=== PATIENT | female | born 1990 | race Caucasian/White ===

== ENCOUNTER → 2021-08-01 15:35 | Outpatient (CLI) | payer OTHER, SELFPAY ==
[2021-08-01 17:49] LABS: Add Manual Diff / Slide Review NO; Basophils Absolute Auto 100 /uL (0-100); Basophils Percent Auto 0.7 % (0-2); Eosinophils Absolute Auto 100 /uL (0-450); Eosinophils Percent Auto 0.7 % (2-4); Hematocrit 38.9 % (36-46); Hemoglobin 13.7 g/dL (12.0-16.0); Lymphocytes Absolute Auto 1600 /uL (1100-4500); Lymphocytes Percent Auto 19.9 % (25-40); Mean Corpuscular HGB Conc 35.2 % (30-36); Mean Corpuscular Hemoglobin 29.9 PG (26-34); Mean Corpuscular Volume 84.9 fL (80-100); Monocytes Absolute Auto 300 /uL (0-900); Monocytes Percent Auto 4.4 % (3-14); Neutrophils Absolute Auto 5900 /uL (1500-7000); Neutrophils Percent Auto 74.3 % (50-75); Platelet Count 215 X10^3/uL (150-400); Red Blood Cell Count 4.58 X10^6/uL (4.0-5.2); Red Cell Distribution Width 13.2 % (11.6-14.8)
[2021-08-01 17:53] LABS: Appearance Urine UA CLEAR; Bilirubin Urine UA NEGATIVE (NEGATIVE); Color Urine UA YELLOW; Glucose Urine UA NEGATIVE (Negative); Ketones Urine UA NEGATIVE (NEGATIVE); Leukocyte Esterase Urine UA NEGATIVE (NEGATIVE); Nitrite Urine UA NEGATIVE (Negative); Occult Blood Urine UA NEGATIVE (Negative); Protein Urine UA TRACE (Negative); Specific Gravity Urine UA 1.025 (1.000-1.035); Urobilinogen Urine UA 0.2 E.U./dL (0.2)
[2021-08-01 19:15] LABS: Urine N gonorrhoeae NOT DETECTED
[2021-08-01 20:37] LABS: Urine Chlamydia NOT DETECTED
[2021-08-02 20:35] LABS: Hepatitis B Surface Antigen NEGATIVE s/c (NEGATIVE); Rubella Antibody IgG 1.9 IU/mL (>15)
[2021-08-02 20:57] LABS: HIV 1 & 2 Ab/Ag 4th Gen Combo NEGATIVE (NEGATIVE); Hep C Virus Ab w/Reflex Quant NEGATIVE s/c (NEGATIVE)
[2021-08-03 07:45] LABS: RPR Screen Non Reactive (Non Reactive); Varicella IgG Antibody 329 index (Immune >165)
== END ==
PROVIDERS: Referring Provider Obstetrics & Gynecology; Visit Provider Obstetrics & Gynecology
DX: Z34.80 Encounter for supervision of other normal pregnancy, unspecified trimester
CPT/HCPCS: 36415; 80055; 81003; 86787; 86803; 86850; 86900; 86901; 87086; 87389; 87491; 87591

== ENCOUNTER → 2021-10-18 14:58 | Outpatient (CLI) | payer OTHER, SELFPAY ==
--- NOTE | 2021-10-18 14:59 | DI.US.S_ITS ---
PROCEDURE: US OB >= 14 WEEKS FETUS INDICATIONS: ANATOMY OUTSIDE/PRIOR DATING DATA: Last menstrual period (LMP): Unknown. LMP-based estimated date of delivery (ERNIE): Unknown. First dating scan (date and location): 07/25/2021 Estimated date of delivery (ERNIE) from first dating scan: 03/04/2022 The calculations are made using the study generated ERNIE of 03/04/2022. TECHNIQUE: Real-time scanning was performed of the fetus, with image documentation and biometric measurements. Endovaginal scanning: Not indicated COMPARISON: [facility], US, US OB < 14 WEEKS, 07/25/2021, 7:16. FINDINGS: General: A single living intrauterine gestation is present. Presentation: Vertex. Placenta: Placental position is left posterior, without previa. Amniotic fluid index: 18.2 cm, normal range is 5-24 cm. Single deepest vertical pocket is 6.1 cm. heart rate: 168 beats per minute. Maternal cervical canal: 4.3 cm long. Normal lower limit is 2.5 cm. biometrics: Biparietal diameter: 5.0 cm, 21 weeks, 1 day Head circumference: 18.5 cm, 20 weeks, 6 days Abdominal circumference: 16.9 cm, 21 weeks, 6 days Femur length: 3.4 cm, 20 weeks, 4 days Clinically estimated gestational age: 20 weeks, 3 days Composite gestational age from present scan: 21 weeks, 1 day Estimated weight and percentile: 407 g, 85% Anatomic survey: Neuro: Ventricles are non-dilated at less than 10 mm. Cisterna magna is normal at 3-11 mm. Cerebellum is normal in size and morphology. Nuchal skin fold: Normal at less than 6 mm between 14-21 weeks gestational age. Face: Nose and lips, facial profile are normal. Spine: No evidence for spina bifida. Heart: 4-chambered heart is present, with normal ventricular outflow tracts. Diaphragm: Diaphragm is intact. Stomach: Left-sided stomach is present. Kidneys: No hydronephrosis. Normal is less than 5 mm in 2nd trimester, less than 7 mm in 3rd trimester. Cord: 3-vessel cord has orthotopic insertion. Bladder: Normal in size. Extremities: All 4 extremities identified. IMPRESSION: 1. Single live intrauterine gestation with fetus in vertex presentation. heart rate is 168 beats per minute. Normal amount of amniotic fluid. Normal growth. Estimated weight is at 85%. 2. Normal anatomic survey. We strive to produce accurate, complete, and clear reports of imaging services. To assist us in improving patient care, this report was composed using standard report templates and voice recognition software. Therefore, it may contain abnormal punctuation, insertions and/or omissions. Occasional wrong-word or sound-alike substitutions may occur. Though we review the report and make efforts to correct it, we do recommend that the report be read carefully in proper context to recognize any text inaccuracies. Dictated by: Wesley Means M.D. on 10/18/2021 at 16:59 Approved by: Wesley Means M.D. on 10/19/2021 at 15:42
== END ==
PROVIDERS: Referring Provider Obstetrics & Gynecology; Visit Provider Obstetrics & Gynecology
DX: Z34.92 Encounter for supervision of normal pregnancy, unspecified, second trimester (principal); Z3A.20 20 weeks gestation of pregnancy
CPT/HCPCS: 76811

== ENCOUNTER → 2021-12-18 12:28 | Outpatient (CLI) | payer OTHER, SELFPAY ==
[2021-12-18 14:50] LABS: Hematocrit 36.7 % (36-46); Hemoglobin 12.6 g/dL (12.0-16.0)
[2021-12-18 14:52] LABS: GTT (PREG) 1 Hour PP 50gm Dose 127 mg/dL (76-139)
== END ==
PROVIDERS: Referring Provider Obstetrics & Gynecology; Visit Provider Obstetrics & Gynecology
DX: Z34.82 Encounter for supervision of other normal pregnancy, second trimester (principal); Z3A.26 26 weeks gestation of pregnancy
CPT/HCPCS: 36415; 82950; 85014; 85018

== ENCOUNTER → 2022-01-22 14:28 | Outpatient (CLI) | payer OTHER, SELFPAY ==
[2022-01-22 16:30] LABS: Add Manual Diff / Slide Review NO; Basophils Absolute Auto 0 /uL (0-100); Basophils Percent Auto 0.4 % (0-2); Eosinophils Absolute Auto 100 /uL (0-450); Hemoglobin 13.6 g/dL (12.0-16.0); Lymphocytes Absolute Auto 1600 /uL (1100-4500); Lymphocytes Percent Auto 16.7 % (25-40); Mean Corpuscular HGB Conc 34.9 % (30-36); Mean Corpuscular Hemoglobin 30.9 PG (26-34); Mean Corpuscular Volume 88.3 fL (80-100); Monocytes Absolute Auto 600 /uL (0-900); Monocytes Percent Auto 6.3 % (3-14); Neutrophils Absolute Auto 7300 /uL (1500-7000); Neutrophils Percent Auto 75.6 % (50-75); Platelet Count 178 X10^3/uL (150-400); Red Blood Cell Count 4.41 X10^6/uL (4.0-5.2); White Blood Cell Count 9.6 X10^3/uL (4.5-11.0)
[2022-01-22 17:07] LABS: Alanine Aminotransferase 10 IU/L (<35); Aspartate Aminotransferase 21 IU/L (14-36); BUN Creatinine Ratio 18.8 (6-22); Blood Urea Nitrogen 9 mg/dL (7-17); Estimated Glomerular Filt Rate > 60 mL/min (>60); Uric Acid 4.2 mg/dL (2.5-6.2)
== END ==
PROVIDERS: Referring Provider Specialist; Visit Provider Specialist
DX: O16.3 Unspecified maternal hypertension, third trimester (principal); O26.899 Other specified pregnancy related conditions, unspecified trimester; R51.9 Headache, unspecified
CPT/HCPCS: 36415; 82565; 84450; 84460; 84520; 84550; 85025

== ENCOUNTER → 2022-02-06 16:09 | Outpatient (CLI) | payer OTHER, SELFPAY ==
[2022-02-07 15:26] LABS: Strep Grp B PCR NEG for Grp B Strep
== END ==
PROVIDERS: Visit Provider Obstetrics & Gynecology
DX: Z34.83 Encounter for supervision of other normal pregnancy, third trimester (principal); Z3A.36 36 weeks gestation of pregnancy
CPT/HCPCS: 87653

== ENCOUNTER 2022-02-13 06:59 | Outpatient (CLI) | payer OTHER, SELFPAY ==
--- NOTE | 2022-02-13 07:40 | PM.OBTRLD ---
Visit Information Visit Information Date of evaluation: 02/13/22 Primary OB Provider: Bony Devries On-call OB Provider: Jie El Reason for Evaluation: Yes rupture of membranes Vital Signs Vital Signs: Temperature 36.7? blood pressure 127/77 heart rate 83 PFSH Social History marital status: Smoking Status: Never smoker Evaluation Evaluation Baseline heart rate: 150 Variability: Moderate (11-25) monitor accelerations: Present Monitor Decelerations: Absent Category of Tracing: Reactive Diagnosis, Plan/Disposition Final Diagnosis (1) 37 weeks gestation of : Status: Acute Plan/Disposition Plan: 32-year-old at 37 weeks and 2 days gestation with concern for rupture of membranes. AmniSure negative. NST reactive. Follow-up in clinic or return to center as needed. OB Disposition: home
== END 2022-02-13 07:45 | disposition home or self-care (01) ==
LOC: LABOR 07:25 → OB 02-14 10:49
PROVIDERS: Referring Provider Obstetrics & Gynecology; Visit Provider Obstetrics & Gynecology
DX: Z03.71 Encounter for suspected problem with amniotic cavity and membrane ruled out (principal); Z3A.37 37 weeks gestation of pregnancy
CPT/HCPCS: 59025; 84112; G0378; G0379

== ENCOUNTER 2022-03-06 14:51 | Outpatient (CLI) | payer OTHER, SELFPAY ==
--- NOTE | 2022-03-06 15:44 | PM.OBTRLD ---
Visit Information Visit Information Date of evaluation: 03/06/22 Primary OB Provider: Bony Devries On-call OB Provider: Bony Devries Reason for Evaluation: Yes non-stress test Comments/Additional reasons for admission: 32 yo at 40+2 weeks EGA for NST due to post-dates status. [facility] Social History marital status: Smoking Status: Never smoker Evaluation Evaluation Baseline heart rate: 150 Variability: Moderate (11-25) monitor accelerations: Present Monitor Decelerations: Absent Category of Tracing: Reactive Status: Category l Cervical dilation (cm): 1 Cervical effacement (%): 90 station: -1 Diagnosis, Plan/Disposition Final Diagnosis (1) : Status: Acute Plan/Disposition Plan: D/C to home with labor precautions. Plan to admit for cervical ripening on the evening of 03/13/2022 if undelivered. OB Disposition: home
== END 2022-03-06 15:48 | disposition home or self-care (01) ==
LOC: OB 03-12 08:43
PROVIDERS: Referring Provider Obstetrics & Gynecology; Visit Provider Obstetrics & Gynecology
DX: O48.0 Post-term pregnancy (principal); Z3A.40 40 weeks gestation of pregnancy
CPT/HCPCS: 59025; G0378; G0379

== ENCOUNTER 2022-03-09 04:40 | Inpatient (IN) | payer OTHER, SELFPAY ==
[2022-03-09 06:04] LABS: Add Manual Diff / Slide Review NO; Basophils Absolute Auto 0 /uL (0-100); Basophils Percent Auto 0.3 % (0-2); Eosinophils Absolute Auto 100 /uL (0-450); Eosinophils Percent Auto 0.7 % (2-4); Hematocrit 41.8 % (36-46); Hemoglobin 14.1 g/dL (12.0-16.0); Lymphocytes Absolute Auto 1500 /uL (1100-4500); Lymphocytes Percent Auto 14.3 % (25-40); Mean Corpuscular HGB Conc 33.7 % (30-36); Mean Corpuscular Hemoglobin 29.5 PG (26-34); Mean Corpuscular Volume 87.7 fL (80-100); Monocytes Absolute Auto 500 /uL (0-900); Monocytes Percent Auto 5.2 % (3-14); Neutrophils Absolute Auto 8300 /uL (1500-7000); Neutrophils Percent Auto 79.5 % (50-75); Platelet Count 157 X10^3/uL (150-400); Red Blood Cell Count 4.77 X10^6/uL (4.0-5.2); Red Cell Distribution Width 13.1 % (11.6-14.8); White Blood Cell Count 10.5 X10^3/uL (4.5-11.0)
[2022-03-09 06:07] LABS: COVID19 -Nasal RAPID Negative (Negative)
[2022-03-09] MEDS: LACTATED RINGERS 1,000 ML 100 ML IV ×2 (07:15→08:04)
[2022-03-09 07:47] VITALS: BP 114/61
--- NOTE | 2022-03-09 08:28 | PM.OBHP.1 ---
OB HPI Date/Time Date of admission: 03/09/22 Date Patient Seen: 03/09/22 Time Patient Seen: 07:45 History of Present Condition Chief complaint: Labor : 2 Para: 1 Estimated Date of Delivery: 03/04/22 Estimated Gestational Age (weeks): 40+5 Narrative: Berkley Tran is a 32 year old admitted in early active phase labor now at 40+5 weeks EGA after membrane sweep yesterday afternoon. PNC has been uneventful with appropriate growth and milestones. GBS is negative. Indications Indication for induction OB: post dates History of Present care: good care Dating criteria: LMP confirmed by 1st trimester US Ultrasounds: normal 1st trimester US and normal mid trimester US Obstetrical complications: none Medical complications: none Preadmission Labs Blood type: B (+) positive -: Antibody screen: negative, GBS status: negative, HBsAG: negative, HIV: negative and RPR/VDLR: negative -: Chlamydia screen: not detected and Gonorrhea screen: not detected -: Rubella: not immune and Varicella: immune HCT: 41.8 HCAB: negative PAP: Normal Quad screen: Normal Prior (ies) History: x 1 Evaluation Evaluation Baseline heart rate: 150 Variability: Moderate (11-25) monitor accelerations: Present Monitor Decelerations: Absent Contraction Frequency (minutes): 4 Uterine Contraction Intensity: Strong/Firm Category of Tracing: Reactive Status: Category l Dilation (cm): 6 Effacement (%): 100 Dilation: >/=5 cm Effacement: >/=80% station: -1 Position of cervix: anterior Consistency: soft Solitario score: 12 Non-invasive Membranes Rupture Test: positive [facility] Social History marital status: Smoking Status: Never smoker Meds Home Medications and Allergies Home Medications Medication Instructions Recorded Confirmed Type prenat.vits,vibha,zwj-bhht-akaxd 1 tab PO DAILY 07/17/21 03/08/22 History Allergies Allergy/AdvReac Type Severity Reaction Status Date / Time No Known Drug Allergies Allergy Unverified 03/08/22 16:07 Review of Systems Review of Systems Narrative: Problem-specific ROS positives included in HPI OB Exam HENMT Head: normal to inspection, normocephalic and atraumatic Eyes General: appearance normal, both eyes and all related structures Resp Effort & Inspection: normal respiratory effort and able to speak in complete sentences Auscultation: clear to auscultation bilaterally Cardio Rate: regular rate Rhythm: regular rhythm Heart Sounds: S1 normal, S2 normal and no murmurs Extremities Lower extremity: Yes normal to inspection GI Inspection: normal to inspection Palpation: Yes soft and Yes no hepatosplenomegaly Uterus Location (Fundal Height): 37 Estimated Weight (lbs): 8 Amniotic Fluid: clear Objective Labs Result Diagrams: 03/09/22 05:25 Labs: Laboratory Results - last 24 hr 03/09/22 03/09/22 03/09/22 05:25 05:25 05:25 WBC 10.5 RBC 4.77 Hgb 14.1 Hct 41.8 MCV 87.7 MCH 29.5 MCHC 33.7 RDW 13.1 Plt Count 157 Neut % (Auto) 79.5 H Lymph % (Auto) 14.3 L [place] % (Auto) 5.2 Eos % (Auto) 0.7 L Baso % (Auto) 0.3 Neut # (Auto) 8300 H Lymph # (Auto) 1500 [place] # (Auto) 500 Eos # (Auto) 100 Baso # (Auto) 0 SARS-CoV-2 (PCR) Negative Blood Type B Positive Antibody Screen Negative Assessment and Plan Assessment and Plan Assessment and Plan narrative: ASSESSMENT 1. Intrauterine , 40+5 weeks EGA 2. Early active phase labor 3. SROM, clear fluid 4. GBS negative status PLAN 1. Admit; anticipate 2. OK for CJ if desired 3. See admission orders.
--- NOTE | 2022-03-09 11:55 | PM.OBPNLAB ---
Date/Time Date Patient Seen: 03/09/22 Time Patient Seen: 11:55 Pain Control Pain control: tolerating well and epidural Pelvic Exam Dilation (cm): 10 Effacement (%): 100 station: +1 Amniotic membrane status: Ruptured Contractions Contraction frequency (min): 4 Contraction duration (min): 1 Contraction pattern: Regular Contraction intensity: Strong/Firm Status status: Category l Heart Rate Baseline: 145 Monitor Accelerations: Present Monitor Decelerations: Absent Assessment and Plan Assessment: active labor Plan: continuous present management Comments: Start pushing now in 2nd stage. Anticipate . I will be in the OR with an emergent case and have contacted Dr. Patrizia Carias who will serve as back-up in my stead. Patient is aware and understands the need for my absence.
[2022-03-09] MEDS: OXYTOCIN 10 UNIT/ML VIAL IM (13:10)
--- NOTE | 2022-03-09 13:41 | PM.OBPRVD ---
Labor & Delivery Delivery date: 03/09/22 Intrapartal Events: None Cervical ripening method: none Induction method: none Delivery monitor: external FHT and external uterine Route of delivery: Episiotomy description: None L&D Laceration Description: Perineal - 2nd Degree Quantitative Blood Loss: 1,300 Anesthesia Type: Epidural Complications: hemorrhage Narrative: PROCEDURE: at 40w5d presented in active labor with SROM and was admitted to Labor and Delivery. The patient progressed through the 1st stage over 7.5 hours. Pain was controlled with an epidural. The patient progressed through the 2nd stage over 1 hour and delivered a viable female infant with APGARs 7/9 at 13:06 via . The cord was cut and clamped after it stopped pulsating. The perineum and vagina were inspected with 2nd degree perineal laceration repaired with 2-O Vicryl. The pt had uterine atony after delivery that resolved with fundal massage and usual pitocin, which was delayed in administering. PREPROCEDURE DIAGNOSIS: Intrauterine at 40w5d GBS negative RH positive POSTPROCEDURE DIAGNOSIS: Intrauterine at 40w5d, delivered Same as preprocedure hemorrhage Baby 1: Infant gender: Female Presentation: vertex Position: Right Occiput Anterior Placenta delivery description: Spontaneous Cord Vessel Description: 3 Vessels score (1 min): 8 score (5 min): 9 Plan for aftercare: Routine care
[2022-03-09] MEDS: TRANEXAMIC ACID 1,000 MG in SODIUM CHLORIDE 0.9% 100 ML 200 MG IV (14:00)
[2022-03-09 14:18] VITALS: TEMP 38.8
[2022-03-09] MEDS: ACETAMINOPHEN 325 MG TABLET 650 MG PO ×2 (14:18→20:25)
[2022-03-09 14:19] VITALS: TEMP 38.8
[2022-03-09] MEDS: IBUPROFEN 600 MG TABLET PO ×2 (14:19→20:27)
[2022-03-09] MEDS: DERMOPLAST SPRAY 20% 60 ML 1 SPRAY TOP (14:21)
[2022-03-09 14:23] LABS: Add Manual Diff / Slide Review NO; Basophils Absolute Auto 100 /uL (0-100); Basophils Percent Auto 0.6 % (0-2); Eosinophils Absolute Auto 0 /uL (0-450); Hematocrit 34.2 % (36-46); Hemoglobin 11.5 g/dL (12.0-16.0); Lymphocytes Absolute Auto 900 /uL (1100-4500); Lymphocytes Percent Auto 4.5 % (25-40); Mean Corpuscular HGB Conc 33.6 % (30-36); Mean Corpuscular Hemoglobin 29.8 PG (26-34); Mean Corpuscular Volume 88.6 fL (80-100); Monocytes Absolute Auto 1000 /uL (0-900); Monocytes Percent Auto 5.1 % (3-14); Neutrophils Absolute Auto 17200 /uL (1500-7000); Neutrophils Percent Auto 89.8 % (50-75); Platelet Count 164 X10^3/uL (150-400); Red Blood Cell Count 3.86 X10^6/uL (4.0-5.2); White Blood Cell Count 19.1 X10^3/uL (4.5-11.0)
[2022-03-09] MEDS: AMPICILLIN 2,000 MG in SODIUM CHLORIDE 0.9% 100 ML 200 MG IV (15:20)
[2022-03-09] MEDS: GENTAMICIN 350 MG in SODIUM CHLORIDE 0.9% 100 ML 108.75 MG IV (16:50)
[2022-03-09] MEDS: LACTATED RINGERS 1,000 ML 1000 ML IV (16:59)
[2022-03-09 18:08] LABS: Add Manual Diff / Slide Review NO; Basophils Absolute Auto 100 /uL (0-100); Basophils Percent Auto 0.4 % (0-2); Eosinophils Absolute Auto 0 /uL (0-450); Hematocrit 28.8 % (36-46); Hemoglobin 9.8 g/dL (12.0-16.0); Lymphocytes Absolute Auto 1600 /uL (1100-4500); Lymphocytes Percent Auto 7.8 % (25-40); Mean Corpuscular HGB Conc 34.1 % (30-36); Monocytes Absolute Auto 1100 /uL (0-900); Monocytes Percent Auto 5.6 % (3-14); Neutrophils Absolute Auto 17300 /uL (1500-7000); Neutrophils Percent Auto 86.2 % (50-75); Platelet Count 162 X10^3/uL (150-400); Red Blood Cell Count 3.27 X10^6/uL (4.0-5.2); Red Cell Distribution Width 13.2 % (11.6-14.8)
[2022-03-09] MEDS: LANOLIN OINT 7 GM 1 APPLIC TOP (20:27)
[2022-03-10] MEDS: ACETAMINOPHEN 325 MG TABLET 650 MG PO (02:35)
[2022-03-10] MEDS: IBUPROFEN 600 MG TABLET PO (02:35)
[2022-03-10 08:23] LABS: Add Manual Diff / Slide Review NO; Basophils Absolute Auto 0 /uL (0-100); Basophils Percent Auto 0.2 % (0-2); Eosinophils Absolute Auto 0 /uL (0-450); Eosinophils Percent Auto 0.3 % (2-4); Hematocrit 27.6 % (36-46); Hemoglobin 9.2 g/dL (12.0-16.0); Lymphocytes Absolute Auto 1400 /uL (1100-4500); Lymphocytes Percent Auto 9.7 % (25-40); Mean Corpuscular HGB Conc 33.5 % (30-36); Mean Corpuscular Hemoglobin 29.7 PG (26-34); Mean Corpuscular Volume 88.7 fL (80-100); Monocytes Absolute Auto 700 /uL (0-900); Monocytes Percent Auto 4.6 % (3-14); Neutrophils Absolute Auto 12600 /uL (1500-7000); Neutrophils Percent Auto 85.2 % (50-75); Platelet Count 145 X10^3/uL (150-400); Red Blood Cell Count 3.11 X10^6/uL (4.0-5.2); Red Cell Distribution Width 13.2 % (11.6-14.8); White Blood Cell Count 14.8 X10^3/uL (4.5-11.0)
[2022-03-10 09:12] VITALS: BP 110/73; PULSE 90; RESP 16; TEMP 36.9
--- NOTE | 2022-03-10 09:19 | P.DS_ITS ---
Discharge Providers Provider Date of admission: 03/09/22 04:40 Discharge Date: 03/10/22 Primary care physician: Doctor Rea MD Consults: 03/10/22 13:40 Consult to Contracting Executive Routine Comment: Discharge provider: Bony Devries MD Summary Hospital Course Date Patient Seen: 03/10/22 Time Patient Seen: 09:19 Diagnoses: , uterine, [place], 40+ 5 weeks gestational age, delivered by vaginal Post hemorrhage secondary to uterine atony Anemia due to acute blood loss Hospital Course: Graciela was admitted on the morning of 03/09/2022 or early in the active phase of labor and progressed spontaneously delivering vaginally, by Dr. Patrizia Carias due to my unavailability (in OR), a viable female with weight of 3693 g (8 lb 2.3 oz), with Apgars of 8/9 early on that afternoon. She sustained a superficial 2nd degree perineal laceration which required repair. Following delivery the patient experienced transient uterine atony responding to IV Pitocin, fundal massage, and TXA with the quantified blood loss of 1300 cc. Post delivery hemoglobin and hematocrit are consistent with observed losses and patient remains asymptomatic. In addition the patient received a single dose of ampicillin and gentamicin following delivery for transient temperature elevation but her temperature resolved promptly , therefore this was not continued beyond the single doses. Following delivery mother and baby have both done well with the mother experiencing prompt return of bowel and bladder func tion, she is ambulating independently, tolerating regular diet, and is not requiring any pain medication. She will be discharged at this time in an afebrile normotensive condition to home after being counseled regarding precautionary symptoms, limitations of activity, medications, plans for follow- up which will be in 6 weeks. Patient will use vmir-ksp-snxgtrx iron and vitamin-C daily for at least the next 30 days, add iron rich foods to her diet, use OTC Tylenol/ibuprofen PRN pain, and continue her vitamins daily. Peripartum Data Infant Delivery Method: Natural Vaginal Laceration Description: Perineal - 2nd Degree Episiotomy description: None complications: uterine atony (PPH 1300 cc) [place] 1: Gender: Female Disposition of : home Status at Discharge Cognitive/behavioral status at discharge: oriented Functional status at discharge: independent ambulation Overall status at discharge: patient is progressing back to baseline Time Spent with Patient Time attestation: Total time spent providing and/or coordinating discharge services: Time spent: Less than 30 minutes Objective Labs Result Diagrams: 03/10/22 07:49 Labs: Laboratory Results - last 24 hr 03/09/22 03/09/22 03/10/22 14:15 17:50 07:49 WBC 19.1 H D 20.0 H 14.8 H RBC 3.86 L 3.27 L 3.11 L Hgb 11.5 L 9.8 L 9.2 L Hct 34.2 L 28.8 L 27.6 L MCV 88.6 88.0 88.7 MCH 29.8 30.0 29.7 MCHC 33.6 34.1 33.5 RDW 13.0 13.2 13.2 Plt Count 164 162 145 L Neut % (Auto) 89.8 H 86.2 H 85.2 H Lymph % (Auto) 4.5 L 7.8 L 9.7 L [place] % (Auto) 5.1 5.6 4.6 Eos % (Auto) 0.0 L 0.0 L 0.3 L Baso % (Auto) 0.6 0.4 0.2 Neut # (Auto) 48286 H 88244 H 84949 H Lymph # (Auto) 900 L 1600 1400 [place] # (Auto) 1000 H 1100 H 700 Eos # (Auto) 0 0 0 Baso # (Auto) 100 100 0 Exam Vital Signs (past 8 hours): - 03/10/22 09:12 Temperature 98.4 F Pulse Rate 90 Respiratory Rate 16 Blood Pressure 110/73 Const General: cooperative and comfortable Nutritional Appearance: average body habitus Orientation: alert and oriented x3 HENMT Head: normal to inspection, atraumatic and abrasion Ears: hearing grossly normal bilaterally Face and sinus: face symmetric Eyes General: appearance normal, both eyes and all related structures Conjunctivae: conjunctivae normal Sclera: sclerae normal EOM: EOM intact bilaterally Neck Neck: normal visual inspection Resp Effort & Inspection: normal respiratory effort and able to speak in complete sentences GI Inspection: normal to inspection Palpation: no hepatosplenomegaly External Female Exam: other (No significant bleeding noted) Extrem General: no calf tenderness Psych Appearance: grossly normal Mental Status: mental status grossly normal Speech and Movement: speech and movement normal Mood: congruent mood Affect: normal affect Attitude: cooperative Thought Process: normal Thought Content: normal Judgment: judgment good Discharge Plan Discharge Plan Patient Disposition: Home Provider Discharge Comment: Please review the written instructions you received when you were discharged from the hospital. Your follow-up appointment will be scheduled in about 6 weeks and I look forward to seeing you then. If in the meanwhile however you have any issues, concerns, or questions, please contact me through the office phone at [phone] or via the patient portal. Discharge orders & Medications Prescriptions: Continued prenat.vits,vibha,okq-sweh-umflv Tablet 1 tab PO DAILY Follow up/Referrals: Doctor Lucia MD [Primary Care Provider] - Bony Devries MD [Physician] - 6 Weeks (Please expect a call on Saturday from Dr. Valenzuela's office to schedule a 6 week post- check-up. ) Discharge Health Status Multidrug resistant organism: No MDRO Diet/Activity/Treatments Diet: Diet as Tolerated Activity: As tolerated Other treatments: Rdwz-sqe-brrivzt iron tablet along with a vitamin-C tablet daily for the next 30 days and adding numerous iron-rich foods to your diet will help restore your normal levels of hemoglobin and hematocrit. Mtaq-ghd-cadelhy Tylenol and/or ibuprofen may be used for additional pain relief. Rmas-oqy-troqbvb stool softeners and/or MiraLax can be used for constipation. Skin/Wound/Dressing Care Report to your healthcare provider any signs of infection, such as:: chills, fever, increased pain, unusual drainage and unusual redness Dressing: N/A Visit Report/Discharge Packet Instructions: DI for Labor and Delivery, Vaginal , DI for and Nipple Soreness Stand Alone Forms: Discharge: Care Discharge Data Primary Care Provider: Doctor Rea
== END 2022-03-10 09:45 | disposition home or self-care (01) | DRG 806 ==
PROVIDERS: Family Medicine; Obstetrics & Gynecology; Admitting Provider Obstetrics & Gynecology; Referring Provider Obstetrics & Gynecology; Visit Provider Obstetrics & Gynecology
DX: O42.02 Full-term premature rupture of membranes, onset of labor within 24 hours of rupture (principal); D62 Acute posthemorrhagic anemia; Z37.0 Single live birth; O72.1 Other immediate postpartum hemorrhage; O86.4 Pyrexia of unknown origin following delivery; O70.1 Second degree perineal laceration during delivery; O90.81 Anemia of the puerperium; O75.4 Other complications of obstetric surgery and procedures; Z3A.40 40 weeks gestation of pregnancy; Z20.822 Contact with and (suspected) exposure to COVID-19
CPT/HCPCS: 36415; 59050; 59400; 59409; 85025; 86850; 86900; 86901; 87635; C9803; G0379; J0290; J2590

== ENCOUNTER 2022-03-19 00:22 | Day surgery (SDC) | payer OTHER, SELFPAY ==
[2022-03-19] VITALS (7 sets, daily range): BP systolic 105–134; BP diastolic 78–88; PULSE 79–93; RESP 12–18; TEMP 36.4–36.9; O2SAT 97–99
--- NOTE | 2022-03-19 | PATH_ITS ---
[facility] Accession Number: [id number] . 01 Material submitted: . product of conception - RETAINED PRODUCTS OF CONCEPTION . 01 Diagnosis: Retained Products of Conception, Curettings: Fragments of degenerated and hemorrhagic decidualized tissue, consistent with retained products of conception. Negative for malignancy. V 03/21/2022 1805 Local . 01 Electronically signed: . Esteban Carrera MD, Pathologist NPI- [id number] . 01 Gross description: . The specimen is received in formalin labeled with the patient's name, , and retained products of conception, and consists of multiple lerma spongy to membranous soft tissue fragments admixed with hemorrhagic material aggregating to 8.9 x 8.4 x 1.7 cm. No tissue is identified. Director Of Individual Giving sections are submitted in cassettes A1-A2. ([id number]) /V 03/21/2022 0212 Local . 01 Pathologist provided ICD-10: O73.1 . 01 CPT . 095178 Specimen Comment: A courtesy copy of this report has been sent to [phone] Performed at: 01 [facility] [address] [place] [address], [place], [place] [id number] MD Liam Piper MD Phone: [phone]
--- NOTE | 2022-03-19 00:40 | DI.US.S_ITS ---
PROCEDURE: US PELVIC COMPLETE INDICATIONS: RULE OUT RETAINED PRODUCTS OF CONCEPTION. HEAVY BLEEDING TODAY WITH MINIMAL BLEEDING SINCE VAGINAL DELIVERY 10 DAYS AGO. TECHNIQUE: Real-time scanning was performed of the pelvic organs, with image documentation. Additional endovaginal scanning was necessary due to incomplete visualization of the adnexal and endometrial structures by transabdominal scanning. COMPARISON: None. FINDINGS: Uterus: Uterus measures 12.8 x 10.6 x 6.5 cm. The endometrium is heterogeneous in appearance and measures up to 2.9 cm in thickness. No definite internal vascularity within the endometrium on color Doppler interrogation. Ovaries: The ovaries were not well seen. No discrete adnexal mass. Other: No pathologic free abdominal or pelvic fluid. IMPRESSION: 1. Abnormal heterogeneous thickening of the medium. Although no definite increased vascularity is demonstrated, retained products of conception cannot be excluded. We strive to produce accurate, complete, and clear reports of imaging services. To assist us in improving patient care, this report was composed using standard report templates and voice recognition software. Therefore, it may contain abnormal punctuation, insertions and/or omissions. Occasional wrong-word or sound-alike substitutions may occur. Though we review the report and make efforts to correct it, we do recommend that the report be read carefully in proper context to recognize any text inaccuracies. Dictated by: Liam See M.D. on 03/19/2022 at 1:55 Approved by: Liam See M.D. on 03/19/2022 at 2:05
[2022-03-19 00:54] LABS: Alanine Aminotransferase 21 IU/L (<35); Albumin 4.1 g/dL (3.5-5.0); Albumin Globulin Ratio 1.2 (1.0-2.8); Alkaline Phosphatase 118 U/L (38-126); Aspartate Aminotransferase 21 IU/L (14-36); BUN Creatinine Ratio 18.5 (6-22); Bilirubin Total 0.3 mg/dL (0.2-1.3); Blood Urea Nitrogen 10 mg/dL (7-17); Calcium 8.8 mg/dL (8.4-10.2); Carbon Dioxide 26 mmol/L (22-32); Chloride 103 mmol/L (98-107); Estimated Glomerular Filt Rate > 60 mL/min (>60); Globulin 3.4 g/dL (1.7-4.1); Glucose 113 mg/dL (70-100); HEMOLYSIS < 15 (0-50); Lipase 235 U/L (23-300); Potassium 3.5 mmol/L (3.4-5.1); Sodium 138 mmol/L (137-145); Total Protein 7.5 g/dL (6.3-8.2)
[2022-03-19 00:59] LABS: Add Manual Diff / Slide Review NO; Basophils Absolute Auto 100 /uL (0-100); Eosinophils Absolute Auto 200 /uL (0-450); Eosinophils Percent Auto 2.2 % (2-4); Hematocrit 35.2 % (36-46); Hemoglobin 11.8 g/dL (12.0-16.0); Lymphocytes Absolute Auto 2600 /uL (1100-4500); Mean Corpuscular HGB Conc 33.5 % (30-36); Mean Corpuscular Hemoglobin 29.5 PG (26-34); Mean Corpuscular Volume 87.9 fL (80-100); Monocytes Absolute Auto 600 /uL (0-900); Monocytes Percent Auto 6.7 % (3-14); Neutrophils Absolute Auto 5800 /uL (1500-7000); Neutrophils Percent Auto 62.1 % (50-75); Platelet Count 384 X10^3/uL (150-400); Red Cell Distribution Width 13.4 % (11.6-14.8); White Blood Cell Count 9.3 X10^3/uL (4.5-11.0)
--- NOTE | 2022-03-19 01:00 | PC.NURSE ---
10 days post- - started bleeding around midnight - soaking through pads - states that she has 4 on right now - passing clots as well - alert and oriented - PWD with respirations equal and unlabored bilaterally
--- NOTE | 2022-03-19 01:25 | PC.NURSE ---
MD with this RN at bedside to look at the bleeding - soaked through 4 pads and her sweatpants at this time - states that it feels like she is gushing continuously
--- NOTE | 2022-03-19 02:11 | ED_ITS ---
HPI - Female Genitourinary General Chief complaint: Vaginal Bleeding Stated complaint: had baby week ago and can't stop bleeding Time Seen by Provider: 03/19/22 01:00 Source: patient Mode of arrival: Ambulatory History of Present Illness HPI Narrative: 32-year-old female nonsmoker without chronic medical problems presents for evaluation of some mild pelvic cramping but significant vaginal bleeding in the passage of clots over the past hour or so. She is feeling a bit nauseated and lightheaded. She denies any fever or chills. She states she is saturated upwards of 8 pads in that time frame and continues to bleed heavily. She does not take any blood thinners. She denies chest pain or shortness of breath. She had a full-term vaginal delivery on March 09 at our facility. She presented at 40 weeks 5 days in active later with spontaneous rupture of membranes. She did have a second-degree perineal laceration repaired with 2-0 Vicryl and had some uterine atony after delivery that resolved with fundal massage and Pitocin. Related Data Home Medications Medication Instructions Recorded Confirmed prenat.vits,vibha,[id number] 1 tab PO DAILY 07/17/21 03/08/22 Allergies Allergy/AdvReac Type Severity Reaction Status Date / Time No Known Drug Allergies Allergy Unverified 03/08/22 16:07 Review of Systems Review of Systems Narrative: GENERAL: See HPI HEENT: Denies sinus pain, ear pain, sore throat, difficulty swallowing, dizziness. RESPIRATORY: Denies dyspnea, cough, wheezing, hemoptysis, sputum. CARDIOVASCULAR: Denies chest pain, palpitations, orthopnea, edema, GASTROINTESTINAL: Denies nausea, vomiting, abdominal pain, diarrhea, constipation, melena. : See HPI MUSCULOSKELETAL: denies weakness, joint pain, or bony pain SKIN: Denies rash, skin lesions, or other NEUROLOGIC: Denies weakness, headache, numbness, change in speech, confusion, seizures, incoordination. PSYCHIATRIC: No concerning psychosocial issues. 12 point review of systems is negative except for those stated above Patient History alcohol intake frequency: holidays/special occasions only Substance Use Type: does not use Exam Narrative Exam Narrative: GENERAL: [32] year old patient appears stated age. Well-developed patient, in mild distress. HEAD: Atraumatic. Normocephalic. EYES: Pupils equal round and reactive. Extraocular motions intact. No scleral icterus. No injection or drainage. ENT: Nose without bleeding, purulent drainage. Throat without erythema, to nsillar hypertrophy or exudate. Airway patent. NECK: Trachea midline. Non tender CARDIOVASCULAR: Regular rate and rhythm without murmurs, gallops, or rubs. RESPIRATORY: Clear to auscultation. Breath sounds equal bilaterally. No wheezes, rales, or rhonchi. GASTROINTESTINAL: Abdomen soft, non-tender, nondistended. : External exam only, multiple large clots, complete saturation of 4-5 pads EXTREMITIES: No edema or joint tenderness. BACK: Nontender without deformity or crepitance. No flank tenderness. NEURO: AOx3. SKIN: No rash or erythema of visible areas Initial Vital Signs Initial Vital Signs: Vital Signs Temperature 97.6 F 03/19/22 00:42 Pulse Rate 91 H 03/19/22 00:42 Respiratory Rate 16 03/19/22 00:42 Blood Pressure 134/83 03/19/22 00:42 Pulse Oximetry 99 03/19/22 00:42 Oxygen Delivery Method 03/19/22 00:42 Course Orders Ordered: ED Orders 03/19/22 00:34 Complete Blood Count AUTO DIFF Stat Comprehensive Metabolic Panel Stat Lipase Stat Packed Cells Stat Type and Screen Stat 03/19/22 00:40 US pelvic complete Stat EKG-12 Lead Stat 03/19/22 02:02 COVID19 -Nasal RAPID/Pre-Proc Stat Lactated Ringer's (Lactated Ringers) 1,000 mls @ 100 mls/hr IV CONT DANTE Cefazolin Sodium/Dextrose (Ancef) 100 mls @ 200 mls/hr IV NOW ONE Stop: 03/19/22 03:31 Ondansetron HCl (Ondansetron 4 Mg Odt) 4 mg PO NOW PRN PRN Reason: Nausea And Vomiting Ondansetron HCl (Ondansetron 4 Mg/2 Ml Inj) 4 mg IV NOW PRN PRN Reason: Nausea And Vomiting Discontinued Medications Tranexamic Acid 1,000 mg/ (Sodium Chloride) 100 mls @ 200 mls/hr IV NOW ONE Stop: 03/19/22 02:57 Last Admin: 03/19/22 03:10 Dose: 200 mls/hr Documented By: SB Consultations Consultation #1: 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 After careful discussion of patient's history, physical exam she had asked for patient to be prep for OR, or crew called in she will come and see her at the bedside Vital Signs Vital signs: Vital Signs - 8 hr 03/19/22 00:42 Temperature 97.6 F Pulse Rate 91 H Respiratory Rate 16 Blood Pressure 134/83 Pulse Oximetry 99 Oxygen Delivery Method Room Air MDM - Female Genitourinary Lab Data Result diagrams: 03/19/22 00:34 03/19/22 00:34 Labs: Lab Results 03/19/22 03/19/22 03/19/22 Range/Units 00:34 00:34 00:34 WBC 9.3 (4.5-11.0) X10^3/uL RBC 4.00 (4.0-5.2) X10^6/uL Hgb 11.8 L (12.0-16.0) g/dL Hct 35.2 L (36-46) % MCV 87.9 (80-100) fL MCH 29.5 (26-34) PG MCHC 33.5 (30-36) % RDW 13.4 (11.6-14.8) % Plt Count 384 (150-400) X10^3/uL Neut % (Auto) 62.1 (50-75) % Lymph % (Auto) 28.0 (25-40) % [place] % (Auto) 6.7 (3-14) % Eos % (Auto) 2.2 (2-4) % Baso % (Auto) 1.0 (0-2) % Neut # (Auto) 5800 (6545-5010) /uL Lymph # (Auto) 2600 (4702-8942) /uL [place] # (Auto) 600 (0-900) /uL Eos # (Auto) 200 (0-450) /uL Baso # (Auto) 100 (0-100) /uL Sodium 138 (137-145) mmol/L Potassium 3.5 (3.4-5.1) mmol/L Chloride 103 (98-107) mmol/L Carbon Dioxide 26 (22-32) mmol/L BUN 10 (7-17) mg/dL Creatinine 0.54 (0.52-1.04) mg/dL Estimated GFR > 60 (>60) mL/min BUN/Creatinine Ratio 18.5 (6-22) Glucose 113 H (70-100) mg/dL Calcium 8.8 (8.4-10.2) mg/dL Total Bilirubin 0.3 (0.2-1.3) mg/dL AST 21 (14-36) IU/L ALT 21 (<35) IU/L Alkaline Phosphatase 118 (38-126) U/L Total Protein 7.5 (6.3-8.2) g/dL Albumin 4.1 (3.5-5.0) g/dL Globulin 3.4 (1.7-4.1) g/dL Albumin/Globulin Ratio 1.2 (1.0-2.8) Lipase 235 (23-300) U/L SARS-CoV-2 (PCR) (Negative) Blood Type B Positive Antibody Screen Negative Crossmatch See Detail 03/19/22 Range/Units 02:02 WBC (4.5-11.0) X10^3/uL RBC (4.0-5.2) X10^6/uL Hgb (12.0-16.0) g/dL Hct (36-46) % MCV (80-100) fL MCH (26-34) PG MCHC (30-36) % RDW (11.6-14.8) % Plt Count (150-400) X10^3/uL Neut % (Auto) (50-75) % Lymph % (Auto) (25-40) % [place] % (Auto) (3-14) % Eos % (Auto) (2-4) % Baso % (Auto) (0-2) % Neut # (Auto) (3525-8903) /uL Lymph # (Auto) (2984-8514) /uL [place] # (Auto) (0-900) /uL Eos # (Auto) (0-450) /uL Baso # (Auto) (0-100) /uL Sodium (137-145) mmol/L Potassium (3.4-5.1) mmol/L Chloride (98-107) mmol/L Carbon Dioxide (22-32) mmol/L BUN (7-17) mg/dL Creatinine (0.52-1.04) mg/dL Estimated GFR (>60) mL/min BUN/Creatinine Ratio (6-22) Glucose (70-100) mg/dL Calcium (8.4-10.2) mg/dL Total Bilirubin (0.2-1.3) mg/dL AST (14-36) IU/L ALT (<35) IU/L Alkaline Phosphatase (38-126) U/L Total Protein (6.3-8.2) g/dL Albumin (3.5-5.0) g/dL Globulin (1.7-4.1) g/dL Albumin/Globulin Ratio (1.0-2.8) Lipase (23-300) U/L SARS-CoV-2 (PCR) Negative (Negative) Blood Type Antibody Screen Crossmatch Imaging Data US - abdomen: Radiologist's Impression: [address] [id number] ReportSigned Patient: Iva Tran#: [id number]: 1990Acct:[id number]/Sex: te of Service: 03/19/22Loc: EDAccession Number: [id number] Procedure: US pelvic complete Ordering Provider: Monster Stewart D.O. PROCEDURE: US PELVIC COMPLETE INDICATIONS: RULE OUT RETAINED PRODUCTS OF CONCEPTION. HEAVY BLEEDING TODAY WITH MINIMAL BLEEDING SINCE VAGINAL DELIVERY 10 DAYS AGO. TECHNIQUE: Real-time scanning was performed of the pelvic organs, with image documentation. Additional endovaginal scanning was necessary due to incomplete visualization of the adnexal and endometrial structures by transabdominal scanning. COMPARISON: None. FINDINGS: Uterus: Uterus measures 12.8 x 10.6 x 6.5 cm. The endometrium is heterogeneous in appearance and measures up to 2.9 cm in thickness. No definite internal vascularity within the endometrium on color Doppler interrogation. Ovaries: The ovaries were not well seen. No discrete adnexal mass. Other: No pathologic free abdominal or pelvic fluid. IMPRESSION: 1. Abnormal heterogeneous thickening of the medium. Although no definite increased vascularity is demonstrated, retained products of conception cannot be excluded. We strive to produce accurate, complete, and clear reports of imaging services. To assist us in improving patient care, this report was composed using standard report templates and voice recognition software. Therefore, it may contain abnormal punctuation, insertions and/or omissions. Occasional wrong-word or sound-alike substitutions may occur. Though we review the report and make efforts to correct it, we do recommend that the report be read carefully in proper context to recognize any text boogie ccuracies. Dictated by: Liam See M.D. on 03/19/2022 at 1:55 Approved by: Liam See M.D. on 03/19/2022 at 2:05 Discharge Plan Departure Patient Disposition: Admitted As Inpatient Clinical Impression: Vaginal bleeding Admit Date/Time: 03/19/22 02:49 Admit Provider: Kita Moeller
--- NOTE | 2022-03-19 02:15 | PC.NURSE ---
MD at bedside - pt to go to the OR - no changes in pt assessment
[2022-03-19 02:32] LABS: COVID19 -Nasal RAPID Negative (Negative)
--- NOTE | 2022-03-19 02:50 | PC.NURSE ---
Surgeon at bedside
--- NOTE | 2022-03-19 03:04 | P.HP_ITS ---
History of Present Illness History of Present Illness Date Patient Seen: 03/19/22 Time Patient Seen: 03:04 Chief complaint: had baby week ago and can't stop bleeding Narrative: Patient is a 32-year-old 2 para 2. 10 days status post spontaneous vaginal delivery on March 09, 2022. She had a atony requiring Pitocin, fundal massage, and TXA. She had 1300 cc of blood loss. She received 1 dose of amp/Gent due to a transient fever. Her course was unremarkable. Patient reports until about 2 hours ago she was changing 2 pads a day except for day # 0-3. She states that she was standing up and felt a gush and looked down and she had soaked through a pad and her clothes. She went through 8 pads prior to coming to the emergency department. While in the emergency department she is passing large clots. She continues to soak through pads. She is slightly tachycardic. No dizziness or lightheadedness. Patient History Family & Social History Safety & Behavioral: Feels Safe in Current Yes Environment Been Physically Hurt or No Threatened By a Person Tobacco & Substance use: Smoking Status Never smoker alcohol intake frequency holiday/special occasion Substance Use Type does not use Meds Home Medications and Allergies Home Medications Medication Instructions Recorded Confirmed Type prenat.vits,vibha,[id number]-dovhe 1 tab PO DAILY 07/17/21 03/08/22 History Allergies Allergy/AdvReac Type Severity Reaction Status Date / Time No Known Drug Allergies Allergy Unverified 03/08/22 16:07 Exam Vital Signs (past 8 hours): - 03/19/22 00:42 Temperature 97.6 F Pulse Rate 91 H Respiratory Rate 16 Blood Pressure 134/83 Pulse Oximetry 99 Oxygen Delivery Method Room Air Oxygen Delivery Method Room Air Narrative Exam Narrative: Generally: Patient is sitting up on gurney, no acute distress Lungs: Clear to auscultation bilaterally Cardiovascular: Tachycardic, regular rhythm. Abdomen: Uterus is not palpable. Nontender. No guarding or rebound tenderness. Pelvic exam: Deferred Ultrasound: Uterus:? Uterus measures 12.8 x 10.6 x 6.5 cm.? The endometrium is heterogeneous in appearance and measures up to 2.9 cm in thickness.? No definite internal vascularity within the endometrium on color Doppler interrogation. ? Ovaries:? The ovaries were not well seen.? No discrete adnexal mass. ? Other:? No pathologic free abdominal or pelvic fluid. ? ? IMPRESSION:? ? 1. Abnormal heterogeneous thickening of the medium.? Although no definite increased vascularity is demonstrated, retained products of conception cannot be excluded. ? Objective Labs Result Diagrams: 03/19/22 00:34 03/19/22 00:34 Labs: Laboratory Results - last 24 hr 03/19/22 03/19/22 03/19/22 00:34 00:34 00:34 WBC 9.3 RBC 4.00 Hgb 11.8 L Hct 35.2 L MCV 87.9 MCH 29.5 MCHC 33.5 RDW 13.4 Plt Count 384 Neut % (Auto) 62.1 Lymph % (Auto) 28.0 [place] % (Auto) 6.7 Eos % (Auto) 2.2 Baso % (Auto) 1.0 Neut # (Auto) 5800 Lymph # (Auto) 2600 [place] # (Auto) 600 Eos # (Auto) 200 Baso # (Auto) 100 Sodium 138 Potassium 3.5 Chloride 103 Carbon Dioxide 26 BUN 10 Creatinine 0.54 Estimated GFR > 60 BUN/Creatinine Ratio 18.5 Glucose 113 H Calcium 8.8 Total Bilirubin 0.3 AST 21 ALT 21 Alkaline Phosphatase 118 Total Protein 7.5 Albumin 4.1 Globulin 3.4 Albumin/Globulin Ratio 1.2 Lipase 235 SARS-CoV-2 (PCR) Blood Type B Positive Antibody Screen Negative 03/19/22 02:02 WBC RBC Hgb Hct MCV MCH MCHC RDW Plt Count Neut % (Auto) Lymph % (Auto) [place] % (Auto) Eos % (Auto) Baso % (Auto) Neut # (Auto) Lymph # (Auto) [place] # (Auto) Eos # (Auto) Baso # (Auto) Sodium Potassium Chloride Carbon Dioxide BUN Creatinine Estimated GFR BUN/Creatinine Ratio Glucose Calcium Total Bilirubin AST ALT Alkaline Phosphatase Total Protein Albumin Globulin Albumin/Globulin Ratio Lipase SARS-CoV-2 (PCR) Negative Blood Type Antibody Screen Assessment & Plan Assessment & Plan narrative: Assessment: 32-year-old 2 para 2 with sudden onset brisk vaginal bleeding 2.9 cm endometrial thickness Presumed retained placenta Plan: Suction D&C The risks, benefits, and alternatives to the procedure were explained to the patient. The risks including bleeding, infection, and uterine perforation. She understands these risks and agrees to proceed. A full par Q was held and consent form was signed. COVID-19 COVID-19 status: Negative Result date/Date tested (Pos, Neg/Pending): 03/19/22 Time Spent With Patient Time with patient: less than 30 minutes Critical Care time: I spent a total of [] minutes of critical care time on this patient's care today; this time is exclusive of procedural time.
[2022-03-19] MEDS: TRANEXAMIC ACID 1,000 MG in SODIUM CHLORIDE 0.9% 100 ML 200 MG IV (03:10)
--- NOTE | 2022-03-19 03:24 | PC.NURSE ---
given breast pump from L&D as she states that she is getting full - states that she feels better as she is pumping
--- NOTE | 2022-03-19 03:45 | PM.PREOP ---
Pre-operative Note COVID-19 COVID-19 status: Negative Result date/Date tested (Pos, Neg/Pending): 03/19/22 Criteria for continued procedure: Non-surgical alternatives not available or appropriate per current SOC Interval Note History & Physical reviewed/Exam performed by Physician: Yes Changes to H&P: No H&P completed within 30 days and has changed as indicated here:: 03/19/22
[2022-03-19] MEDS: CEFAZOLIN 2 GM/100 ML PREMIX 100 ML IV (03:53)
--- NOTE | 2022-03-19 04:11 | PM.GYNOP.1 ---
Operative Date/Time/Diagnoses Date of procedure: 03/19/22 Time of procedure: 04:11 Pre-op diagnosis: Retained placenta Brisk vaginal bleeding 10 days Post-op diagnosis: same Procedure & Clinicians Procedure: Procedures Operation Date: 03/19/22 04:00 Actual Procedure Side Surgeon p Dilation and Curettage Not Applicable Kita Moeller MD Indications: Brisk vaginal bleeding 10 days 2.9 cm endometrium on ultrasound Surgeon: Kita Moeller Anesthesia Type: General (LMA) Operative Notes Findings: 12 week size uterus Several large clots in the uterus Several pieces of retained placenta Closure Type: not applicable Specimen(s): other (Placenta and clot) Estimated blood loss (mL): 175 Blood products transfused: none Procedure in detail: After informed consent was obtained, the patient was taken to the operating room where she was placed in the dorsal supine position. After adequate LMA general anesthesia was achieved, she was placed in the dorsal lithotomy position, and prepped and draped in the usual sterile fashion. A time-out was performed. A bivalve speculum was placed into the vagina and the anterior lip of the cervix was grasped with a single-tooth tenaculum. The cervical os was open. There was some clot coming from the cervical opening. Ring forceps were used to remove the clot. The ring forceps were passed into the uterine cavity and a large amount of clot and tissue were obtained. Using the # 12 plastic curette, several passes with suction revealed a large amount of clot and tissue. Several more passes revealed a small amount of blood only. The instruments were removed from the uterus. The single-tooth tenaculum was removed from the anterior lip of the cervix. The bivalve speculum was removed from the vagina. Sponge, lap, and instrument counts were correct x2. Patient tolerated the procedure well, and was taken to PACU in stable condition. Complications: none Post-operative Condition: stable Disposition: PACU Plan for aftercare: Home after recovery
--- NOTE | 2022-03-19 04:27 | SUR.OPER ---
Lithotomy on padded OR bed, head on pillow, arms secured on padded arm boards at <90 degrees abduction. Legs secured in padded yellow fins stirrups.
== END 2022-03-19 05:05 | disposition home or self-care (01) ==
LOC: ED 02:39 → AC 03:20 → OR 03-22 09:50
PROVIDERS: Emergency Provider Emergency Medicine; Referring Provider Emergency Medicine; Visit Provider Obstetrics & Gynecology
PROC: (CPT 58120; principal; 2022-03-19 04:00)
DX: O72.2 Delayed and secondary postpartum hemorrhage (principal); Z20.822 Contact with and (suspected) exposure to COVID-19
CPT/HCPCS: 59160; 36415; 76856; 80053; 83690; 85025; 86850; 86900; 86901; 87635; 96365; 99283; 99284; C9803; J0690; J1100; J1885; J2250; J2405; J2704; J3010